=== PATIENT | female | born 1990 | race Caucasian/White ===

== ENCOUNTER 2016-03-19 13:58 | Observation (INO) ==
[2016-03-19 14:34] LABS: Basophils # 0.1 K/mcL (0.0-0.2); Basophils % 0.5 %; Eosinophils # 0.1 K/mcL (0.0-0.6); Eosinophils % 0.9 %; Hematocrit 45.4 % (35.3-44.9); Hemoglobin 15.7 g/dL (11.5-15.4); Immature Granulocytes % 0.4 % (0-4); Lymphocytes # 2.6 K/mcL (0.6-4.6); Lymphocytes % 19.8 %; Mean Corpuscular HGB Conc 34.6 g/dL (31.6-35.5); Mean Corpuscular Volume 89.5 fL (83.0-100.0); Mean Platelet Volume 10.8 fL (9.4-12.4); Monocytes # 0.9 K/mcL (0.0-1.3); Monocytes % 6.6 %; Neutrophils # 9.3 K/mcL (1.6-8.9); Platelet Count 279 K/mcL (140-400); Red Blood Count 5.07 M/mcL (3.82-4.97); Red Cell Distribution Width 12.1 % (11.5-14.5); Segmented Neutrophils % 71.8 %
[2016-03-19 14:37] LABS: Bilirubin,Urine Negative (Negative); Blood,Urine Large (Negative); Clarity,Urine Cloudy (Clear); Color,Urine Yellow (Yellow); Glucose,Urine (UA) Normal (Normal); Ketones,Urine Negative (Negative); Leukocyte Esterase,Urine Trace (Negative); Nitrite,Urine Negative (Negative); Protein,Urine Trace mg/dL (Neg-Trace); Specific Gravity,Urine 1.023 (1.010-1.025); Urobilinogen,Urine Normal (Normal)
[2016-03-19 14:39] LABS: Amphetamine Screen,Urine Negative ng/mL (Cutoff=1000); Barbiturate Screen,Urine Negative ng/mL (Cutoff=200); Benzodiazepines Screen,Urine Negative ng/mL (Cutoff=200); Cannabinoid Screen,Urine Negative ng/mL (Cutoff = 50); Cocaine Screen,Urine Negative ng/mL (Cutoff= 300); Opiate Screen,Urine Negative ng/mL (Cutoff=300); Phencyclidine Screen,Urine Negative ng/mL (Cutoff=25)
[2016-03-19 14:40] LABS: Bacteria,Urine Few per hpf (None-Few); Hyaline Casts,Urine None Seen per lpf (None-Few); RBC,Urine 30-50 per hpf (0-3); Squamous Epithelial Cell,Urine Many per lpf (None-Few); WBC,Urine 0-3 per hpf (0-3)
[2016-03-19 14:50] LABS: BUN/Creatinine Ratio 10 (6-26); Blood Urea Nitrogen 8 mg/dL (7-20); Calcium 9.4 mg/dL (8.6-10.8); Carbon Dioxide 21 mEq/L (19-29); Chloride 108 mEq/L (98-109); Glucose 100 mg/dL (70-99); Osmolality,Calculated 288 (280-300); Potassium 3.6 mEq/L (3.5-4.5); Sodium 140 mEq/L (136-145); eGFR For African Americans > 60 (> 60); eGFR For Non-African Americans > 60 (> 60)
[2016-03-19 14:51] LABS: Acetaminophen < 1.0 mcg/mL (10-30); Ethanol < 10 mg/dL (0-10); Salicylate < 5.0 mg/dL (15-30)
[2016-03-19 14:58] LABS: Mucus,Urine Few (Few)
[2016-03-19 14:59] LABS: Transitional Epi Cells,Urine Few per hpf (None-Few)
--- NOTE | 2016-03-19 14:59 | Emergency Department Note ---
Disposition Clinical Impression: Suicidal ideation Disposition: Admitted As Inpatient Condition: Good Time of Disposition: 18:15 Psych HPI - General Chief Complaint: ED Psychiatric Symptoms Stated Complaint: SI Time Seen by Provider: 03/19/16 14:06 Source: patient, family Mode of arrival: ambulatory Limitations: no limitations Nursing Notes Reviewed: Yes Vital Signs Reviewed: Yes - History of Present Illness HPI Narrative: 25-year-old female presents after cutting event. Patient states she was having a verbal argument with her significant other when she became very angry. She took a knife, scratched her right-sided face and then tried to cut her left wrist. The significant other took away the knife and called EMS. Patient denies ingestion of medications. She states she was cutting herself in an attempt to hurt herself but not necessarily to kill herself. She has no other homicidal ideation. Patient states that her emotions have been out of control over the past couple weeks. 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 - Related Data Home Medications Medication Instructions Recorded Confirmed Cold And Sinus Med 12/09/15 Previous Rx's Medication Instructions Recorded Amoxicillin 875 mg PO BID #20 tablet 12/09/15 Loratadine/Pseudophed (12 HR) 1 each PO BID #20 tab.er.12h 12/09/15 [Claritin D (12HR)] Promethazine/Phenyleph/Codeine 5 ml PO Q6H PRN #120 ml 12/09/15 [Promethazine Vc-Codeine Syrup] Benzonatate [Tessalon] 200 mg PO TID #20 capsule 02/13/16 Doxycycline 100 mg PO BID 7 Days 02/13/16 Ipratropium/Albuterol Sulfate 1 inh IH QID #1 aer.w.adap 02/13/16 [Combivent Respimat Inhal [place]] Allergies Allergy/AdvReac Type Severity Reaction Status Date / Time No Known Allergies Allergy Verified 11/06/14 01:20 Limitations: ROS unobtainable due to patients medical condition Constitutional: Denies: fever, chills, weakness Cardiovascular: Denies: chest pain, palpitations, dyspnea on exertion Respiratory: Denies: cough, dyspnea, wheezes Gastrointestinal: Denies: abdominal pain, nausea, vomiting Genitourinary: Denies: urgency, dysuria Musculoskeletal: Denies: back pain, neck pain Integumentary: Denies: rash, abrasion Neurological: Denies: headache, weakness, numbness, paresthesias Psychiatric: Reports: anxiety, depression, suicidal thoughts. Denies: homicidal thoughts, auditory hallucinations, visual hallucinations Past Medical History - Past Medical History Attestation: Yes The following information was validated with the patient. Source: patient Medical history: Reports: hypertension Surgical history: Reports: orthopedic, other Psychiatric history: Reports: depression ACID CONDITIONER history: Reports: spontaneous , dysfunctional uterine bleed - Social History Smoking Status: Current every day smoker Smokeless Tobacco Status: No Alcohol use: Reports: occasionally Drug use: Reports: none Physical Exam General: Alert and in no acute distress Skin: Warm, dry, abrasion to the right face and left wrist Head: Normocephalic and atraumatic Neck: Supple, trachea midline and no tenderness Cardiovascular: RRR, no murmur, normal perfusion Respiratory: CTAB, no wheezing, cough, or respiratory distress Musculoskeletal: Normal strength, no tenderness, swelling or deformity GI: Soft, nontender, nondistended. Bowel sounds present Neuro: A&O to person, place, time and situation. No focal deficits noted on exam Psychiatric: cooperative and appropriate mood and affect. - General Limitations: no limitations General appearance: alert, in no apparent distress Course Vital Signs Temperature 97.6 F 03/19/16 14:00 Pulse Rate 85 03/19/16 14:00 Respiratory Rate 18 03/19/16 14:00 Blood Pressure 144/102 03/19/16 14:00 O2 Sat by Pulse Oximetry 97 03/19/16 14:00 Temperature 97.6 F 03/19/16 21:00 Pulse Rate 84 03/19/16 21:00 Respiratory Rate 18 03/19/16 21:00 Blood Pressure 140/102 03/19/16 21:00 O2 Sat by Pulse Oximetry 97 03/19/16 14:00 Oxygen Delivery Oxygen Delivery Room Air Psych - Lab Data Result diagrams: 03/19/16 14:15 03/19/16 14:15 Lab Results 03/19/16 03/19/16 03/19/16 Range/Units 14:10 14:10 14:15 WBC 12.9 H (4.3-11.1) K/mcL RBC 5.07 H (3.82-4.97) M/mcL Hgb 15.7 H (11.5-15.4) g/dL Hct 45.4 H (35.3-44.9) % MCV 89.5 (83.0-100.0) fL MCH 31.0 (28.0-33.3) pg MCHC 34.6 (31.6-35.5) g/dL RDW 12.1 (11.5-14.5) % Plt Count 279 (140-400) K/mcL MPV 10.8 (9.4-12.4) fL Immature Gran % 0.4 (0-4) % Seg Neutrophils % 71.8 % Lymphocytes % 19.8 % Monocytes % 6.6 % Eosinophils % 0.9 % Basophils % 0.5 % Neutrophils # 9.3 H (1.6-8.9) K/mcL Lymphocytes # 2.6 (0.6-4.6) K/mcL Monocytes # 0.9 (0.0-1.3) K/mcL Eosinophils # 0.1 (0.0-0.6) K/mcL Basophils # 0.1 (0.0-0.2) K/mcL Sodium (136-145) mEq/L Potassium (3.5-4.5) mEq/L Chloride (98-109) mEq/L Carbon Dioxide (19-29) mEq/L BUN (7-20) mg/dL Creatinine (0.57-1.11) mg/dL Est GFR ( Amer) (> 60) Est GFR (Non-Af Amer) (> 60) BUN/Creatinine Ratio (6-26) Glucose (70-99) mg/dL Calculated Osmolality (280-300) Calcium (8.6-10.8) mg/dL Urine Color Yellow (Yellow) Urine Clarity Cloudy A (Clear) Urine pH 6.0 (5.0-8.0) pH Units Ur Specific [place] 1.023 (1.010-1.025) Urine Protein Trace (Neg-Trace) mg/dL Urine Glucose (UA) Normal (Normal) mg/dL Urine Ketones Negative (Negative) mg/dL Urine Blood Large H (Negative) Urine Nitrite Negative (Negative) Urine Bilirubin Negative (Negative) Urine Urobilinogen Normal (Normal) mg/dL Ur Leukocyte Esterase Trace H (Negative) Urine Microscopic RBC 30-50 H (0-3) per hpf Urine Microscopic WBC 0-3 (0-3) per hpf Ur Squamous Epith Cells Many H (None-Few) per lpf Ur Transition Epith Cell Few (None-Few) per hpf Urine Bacteria Few (None-Few) per hpf Hyaline Casts None Seen (None-Few) per lpf Urine Mucus Few (Few) Salicylates (15-30) mg/dL Urine Opiates Screen Negative (Gerckj=822) ng/mL Acetaminophen (10-30) mcg/mL Ur Barbiturates Screen Negative (Gffctv=397) ng/mL Ur Phencyclidine Scrn Negative (Cutoff=25) ng/mL Ur Amphetamines Screen Negative (Ofhazr=2931) ng/mL U Benzodiazepines Scrn Negative (Yqjlsw=070) ng/mL Urine Cocaine Screen Negative (Cutoff= 300) ng/mL U Marijuana (THC) Screen Negative (Cutoff = 50) ng/mL Ethyl Alcohol (0-10) mg/dL 03/19/16 Range/Units 14:15 WBC (4.3-11.1) K/mcL RBC (3.82-4.97) M/mcL Hgb (11.5-15.4) g/dL Hct (35.3-44.9) % MCV (83.0-100.0) fL MCH (28.0-33.3) pg MCHC (31.6-35.5) g/dL RDW (11.5-14.5) % Plt Count (140-400) K/mcL MPV (9.4-12.4) fL Immature Gran % (0-4) % Seg Neutrophils % % Lymphocytes % % Monocytes % % Eosinophils % % Basophils % % Neutrophils # (1.6-8.9) K/mcL Lymphocytes # (0.6-4.6) K/mcL Monocytes # (0.0-1.3) K/mcL Eosinophils # (0.0-0.6) K/mcL Basophils # (0.0-0.2) K/mcL Sodium 140 (136-145) mEq/L Potassium 3.6 (3.5-4.5) mEq/L Chloride 108 (98-109) mEq/L Carbon Dioxide 21 (19-29) mEq/L BUN 8 (7-20) mg/dL Creatinine 0.80 (0.57-1.11) mg/dL Est GFR ( Amer) > 60 (> 60) Est GFR (Non-Af Amer) > 60 (> 60) BUN/Creatinine Ratio 10 (6-26) Glucose 100 H (70-99) mg/dL Calculated Osmolality 288 (280-300) Calcium 9.4 (8.6-10.8) mg/dL Urine Color (Yellow) Urine Clarity (Clear) Urine pH (5.0-8.0) pH Units Ur Specific [place] (1.010-1.025) Urine Protein (Neg-Trace) mg/dL Urine Glucose (UA) (Normal) mg/dL Urine Ketones (Negative) mg/dL Urine Blood (Negative) Urine Nitrite (Negative) Urine Bilirubin (Negative) Urine Urobilinogen (Normal) mg/dL Ur Leukocyte Esterase (Negative) Urine Microscopic RBC (0-3) per hpf Urine Microscopic WBC (0-3) per hpf Ur Squamous Epith Cells (None-Few) per lpf Ur Transition Epith Cell (None-Few) per hpf Urine Bacteria (None-Few) per hpf Hyaline Casts (None-Few) per lpf Urine Mucus (Few) Salicylates < 5.0 L (15-30) mg/dL Urine Opiates Screen (Fmpxdp=788) ng/mL Acetaminophen < 1.0 L (10-30) mcg/mL Ur Barbiturates Screen (Mgokyp=584) ng/mL Ur Phencyclidine Scrn (Cutoff=25) ng/mL Ur Amphetamines Screen (Gtcwak=1418) ng/mL U Benzodiazepines Scrn (Nmfuht=824) ng/mL Urine Cocaine Screen (Cutoff= 300) ng/mL U Marijuana (THC) Screen (Cutoff = 50) ng/mL Ethyl Alcohol < 10 (0-10) mg/dL Psychiatric Medical Clearance - Medical Clearance Checklist Medical History: No Social History Section defined Current Vitals: Last Vital Signs Temp 97.6 F 03/19/16 21:00 Pulse 84 03/19/16 21:00 Resp 18 03/19/16 21:00 BP 140/102 03/19/16 21:00 Pulse Ox 97 03/19/16 14:00 Psychiatric Lab Panel: Drug Levels and Toxicity 03/19/16 03/19/16 14:10 14:15 Urine Opiates Screen Negative Acetaminophen < 1.0 L Ur Barbiturates Screen Negative Ur Phencyclidine Scrn Negative Ur Amphetamines Screen Negative U Benzodiazepines Scrn Negative Urine Cocaine Screen Negative U Marijuana (THC) Screen Negative Ethyl Alcohol < 10 Abnormal Labs: Abnormal lab results WBC 12.9 K/mcL (4.3-11.1) H 03/19/16 14:15 RBC 5.07 M/mcL (3.82-4.97) H 03/19/16 14:15 Hgb 15.7 g/dL (11.5-15.4) H 03/19/16 14:15 Hct 45.4 % (35.3-44.9) H 03/19/16 14:15 Neutrophils # 9.3 K/mcL (1.6-8.9) H 03/19/16 14:15 Glucose 100 mg/dL (70-99) H 03/19/16 14:15 Urine Clarity Cloudy (Clear) A 03/19/16 14:10 Urine Blood Large (Negative) H 03/19/16 14:10 Ur Leukocyte Esterase Trace (Negative) H 03/19/16 14:10 Urine Microscopic RBC 30-50 per hpf (0-3) H 03/19/16 14:10 Ur Squamous Epith Cells Many per lpf (None-Few) H 03/19/16 14:10 Salicylates < 5.0 mg/dL (15-30) L 03/19/16 14:15 Acetaminophen < 1.0 mcg/mL (10-30) L 03/19/16 14:15 Statement of Medical Clearance: I have evaluated the patient, reviewed diagnostic information, and certify that the patient's medical condition is sufficiently stable that transfer to the psychiatric unit does not pose a significant risk of deterioration.
[2016-03-19] MEDS ORDERED: Acetaminophen 325 MG TABLET PO PRN (18:51)
[2016-03-19] MEDS ORDERED: Mag Hydrox/Al Hydrox/Simeth 30 ML UDC PO PRN (18:51)
[2016-03-19] MEDS ORDERED: *HR* LORazepam 1 MG TABLET PO PRN ×2 (18:51→18:54)
[2016-03-19] MEDS ORDERED: MOM Conc 10 ML UD.LIQ PO PRN (18:51)
[2016-03-19] MEDS ORDERED: traZODone 50 MG TABLET PO PRN (18:51)
[2016-03-19] MEDS ORDERED: Haloperidol Lactate 5 MG/ML VIAL IM PRN (18:51)
[2016-03-19] MEDS ORDERED: *HR* LORazepam 2 MG/ML VIAL IM PRN (18:51)
[2016-03-20] MEDS ORDERED: Nicotine 2 MG GUM BC PRN (08:22)
[2016-03-20 08:27] VITALS: BP 142/95
--- NOTE | 2016-03-20 08:32 | Psychiatry History & Physical ---
Date of Encounter: 03/20/16 Time of Encounter: 09:03 History of Present Illness Patient Stated Chief Complaint: angry and cut myself Medicare Admission Attestation: For traditional Medicare patients the provided hospital inpatient services are reasonable and necessary and in the case of services not specified as inpatient -only under 42 CFR 419.22 (n), that they are appropriately provided as inpatient services in accordance 42 CFR 412.3. For Critical Access Hospital the patient may reasonably be expected to be discharged or transferred to a hospital within 96 hours after admission to the Critical Access Hospital. Admitted From: Emergency Dept History of Present Illness: Ms. Enamorado is a 25 year old female admitted from the emergency department under observation status. Patient presented was significant other reporting that she has been feeling increasingly irritable and frustrated and has an argument after which she went to the bathroom with a minor and cut herself superficially on the right side of her face but denied any intent to kill herself. 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 She stated that that she experienced feeling depressed since her teenage years and especially in 2005 when she lost her 2 grandparents in the same year she was in high school at that time and she had drug abuse for a while and that was mostly narcotics for pain but she has been clean for the past 4 years otherwise she she smokes one half pack cigarettes during significant amount of caffeine caffeinated beverages but denied any as of drugs or alcohol. Patient denied having any previous suicide attempts or intents to harm herself however she admitted to feeling tired and frustrated irritable especially after working this longer hours also she noticed more changes around her. In the form IRRITABILITY and mood swings. Past Med Surg Social Fam HX - Past Medical History Medical history: hypertension - Past Psychiatric History Psychiatric history: Reports: no psych history - Past Surgical History Surgical History: orthopedic, other - Social History Smoking Status: Current every day smoker Smokeless Tobacco Status: No Alcohol use: occasionally Drug use: none - Family History Mother Hx Family Cardiac Disorders: Yes (heart disease) Hx Family Endocrine Disorder: Yes (diabeties) Father Hx Family Cardiac Disorders: Yes (heart disease, [place]) Medications & Allergies Amoxicillin 875 mg PO BID #20 tablet 12/09/15 [Rx] Cold And Sinus Med 12/09/15 [History] Loratadine/Pseudophed (12 HR) [Claritin D (12HR)] 1 each PO BID #20 tab.er.12h 12/09/15 [Rx] Promethazine/Phenyleph/Codeine [Promethazine Vc-Codeine Syrup] 5 ml PO Q6H PRN # 120 ml 12/09/15 [Rx] Benzonatate [Tessalon] 200 mg PO TID #20 capsule 02/13/16 [Rx] Doxycycline 100 mg PO BID 7 Days 02/13/16 [Rx] Ipratropium/Albuterol Sulfate [Combivent Respimat Inhal [place]] 1 inh IH QID #1 aer.w.adap 02/13/16 [Rx] Allergies No Known Allergies Allergy (Verified 11/06/14 01:20) Review of Systems Psychiatric: Reports: depression, anxiety, suicidal ideation, irritability, mood swings Mental Status Exam Patient orientation: Yes Person, Yes Time, Yes Place Level of alertness: Alert Patient appearance: Appropriate, Well Groomed Behavior: calm, cooperative Psychomotor activity: Normal Eye contact: Maintains Eye Contact Mood description: Depressed, Anxious, Irritable Affect description: congruent with mood, full range Speech pattern: Normal rate, Normal rhythm, Normal tone, Appropriate, Clear Speech volume: Normal Thought process: Linear, Goal Oriented Thought content: No Suicidal ideation, No Homicidal ideation, No Overt delusions Perceptual disturbances: No Auditory hallucinations, No Visual hallucinations Attention span: Capable of Focused Attention Memory description: Grossly Intact Patient reliability: Reliable Historian Intelligence estimate: Average Judgment: Good Insight: Full Results - Vital Signs Vital signs: Temp Pulse Resp BP Pulse Ox 97.7 F 78 20 142/95 97 03/20/16 08:27 03/20/16 08:27 03/20/16 08:27 03/20/16 08:27 03/19/16 14:00 - Labs Labs: Laboratory Last Values WBC 12.9 K/mcL (4.3-11.1) H 03/19/16 14:15 RBC 5.07 M/mcL (3.82-4.97) H 03/19/16 14:15 Hgb 15.7 g/dL (11.5-15.4) H 03/19/16 14:15 Hct 45.4 % (35.3-44.9) H 03/19/16 14:15 MCV 89.5 fL (83.0-100.0) 03/19/16 14:15 MCH 31.0 pg (28.0-33.3) 03/19/16 14:15 MCHC 34.6 g/dL (31.6-35.5) 03/19/16 14:15 RDW 12.1 % (11.5-14.5) 03/19/16 14:15 Plt Count 279 K/mcL (140-400) 03/19/16 14:15 MPV 10.8 fL (9.4-12.4) 03/19/16 14:15 Immature Gran % 0.4 % (0-4) 03/19/16 14:15 Seg Neutrophils % 71.8 % 03/19/16 14:15 Lymphocytes % 19.8 % 03/19/16 14:15 Monocytes % 6.6 % 03/19/16 14:15 Eosinophils % 0.9 % 03/19/16 14:15 Basophils % 0.5 % 03/19/16 14:15 Neutrophils # 9.3 K/mcL (1.6-8.9) H 03/19/16 14:15 Lymphocytes # 2.6 K/mcL (0.6-4.6) 03/19/16 14:15 Monocytes # 0.9 K/mcL (0.0-1.3) 03/19/16 14:15 Eosinophils # 0.1 K/mcL (0.0-0.6) 03/19/16 14:15 Basophils # 0.1 K/mcL (0.0-0.2) 03/19/16 14:15 Sodium 140 mEq/L (136-145) 03/19/16 14:15 Potassium 3.6 mEq/L (3.5-4.5) 03/19/16 14:15 Chloride 108 mEq/L (98-109) 03/19/16 14:15 Carbon Dioxide 21 mEq/L (19-29) 03/19/16 14:15 BUN 8 mg/dL (7-20) 03/19/16 14:15 Creatinine 0.80 mg/dL (0.57-1.11) 03/19/16 14:15 Est GFR ( Amer) > 60 (> 60) 03/19/16 14:15 Est GFR (Non-Af Amer) > 60 (> 60) 03/19/16 14:15 BUN/Creatinine Ratio 10 (6-26) 03/19/16 14:15 Glucose 100 mg/dL (70-99) H 03/19/16 14:15 Calculated Osmolality 288 (280-300) 03/19/16 14:15 Calcium 9.4 mg/dL (8.6-10.8) 03/19/16 14:15 Urine Color Yellow (Yellow) 03/19/16 14:10 Urine Clarity Cloudy (Clear) A 03/19/16 14:10 Urine pH 6.0 pH Units (5.0-8.0) 03/19/16 14:10 Ur Specific [place] 1.023 (1.010-1.025) 03/19/16 14:10 Urine Protein Trace mg/dL (Neg-Trace) 03/19/16 14:10 Urine Glucose (UA) Normal mg/dL (Normal) 03/19/16 14:10 Urine Ketones Negative mg/dL (Negative) 03/19/16 14:10 Urine Blood Large (Negative) H 03/19/16 14:10 Urine Nitrite Negative (Negative) 03/19/16 14:10 Urine Bilirubin Negative (Negative) 03/19/16 14:10 Urine Urobilinogen Normal mg/dL (Normal) 03/19/16 14:10 Ur Leukocyte Esterase Trace (Negative) H 03/19/16 14:10 Urine Microscopic RBC 30-50 per hpf (0-3) H 03/19/16 14:10 Urine Microscopic WBC 0-3 per hpf (0-3) 03/19/16 14:10 Ur Squamous Epith Cells Many per lpf (None-Few) H 03/19/16 14:10 Ur Transition Epith Cell Few per hpf (None-Few) 03/19/16 14:10 Urine Bacteria Few per hpf (None-Few) 03/19/16 14:10 Hyaline Casts None Seen per lpf (None-Few) 03/19/16 14:10 Urine Mucus Few (Few) 03/19/16 14:10 Salicylates < 5.0 mg/dL (15-30) L 03/19/16 14:15 Urine Opiates Screen Negative ng/mL (Uftuex=662) 03/19/16 14:10 Acetaminophen < 1.0 mcg/mL (10-30) L 03/19/16 14:15 Ur Barbiturates Screen Negative ng/mL (Csgykk=313) 03/19/16 14:10 Ur Phencyclidine Scrn Negative ng/mL (Cutoff=25) 03/19/16 14:10 Ur Amphetamines Screen Negative ng/mL (Maquwm=1713) 03/19/16 14:10 U Benzodiazepines Scrn Negative ng/mL (Vprffh=397) 03/19/16 14:10 Urine Cocaine Screen Negative ng/mL (Cutoff= 300) 03/19/16 14:10 U Marijuana (THC) Screen Negative ng/mL (Cutoff = 50) 03/19/16 14:10 Ethyl Alcohol < 10 mg/dL (0-10) 03/19/16 14:15 Assessment and Plan (1) Depressive disorder Current visit: Yes Status: Acute Plan: Admit inpatient for safety and stabilization, Close observation, Suicide Precautions per unit protocol, Encourage participation in unit milieu, Group Therapy, Monitor sleep, Monitor appetite Risks, benefits, side effects, alternatives discussed w/pt: Yes Patient agreeable to treatment: Yes Estimated Length of Stay (Days): 1 (observation)
--- NOTE | 2016-03-20 13:12 | Discharge Summary ---
Date of Encounter: 03/20/16 Time of Encounter: 13:10 History of Present Illness Chief complaint: angry,i cut myself Admitted From: Emergency Dept History of Present Illness: Ms. Enamorado is a 25 year old female admitted from the emergency department on an observation status. Patient had an argument towards her boyfriend and then she went in the bathroom was a knife and cut her face on the right cheek superficially. Patient denied any intent to kill herself had no previous attempts of suicide and has been working longer hours and she feels irritable. For details of the admission please see H&P Past Med Surg Social Fam HX - Past Medical History Medical history: hypertension - Past Psychiatric History Psychiatric history: Reports: no psych history - Past Surgical History Surgical History: orthopedic, other - Social History Smoking Status: Current every day smoker Smokeless Tobacco Status: No Alcohol use: occasionally Drug use: none - Family History Mother Hx Family Cardiac Disorders: Yes (heart disease) Hx Family Endocrine Disorder: Yes (diabeties) Father Hx Family Cardiac Disorders: Yes (heart disease, [place]) Medications - Discharge Medications Prescriptions: Sertraline [Zoloft] 50 mg PO DAILY #30 tablet TraZODone 50 mg PO HS PRN #30 tablet PRN Reason: Insomnia Sertraline [Zoloft] 50 mg PO DAILY #30 tablet 03/20/16 [Rx] TraZODone 50 mg PO HS PRN #30 tablet 03/20/16 [Rx] Allergies No Known Allergies Allergy (Verified 11/06/14 01:20) Review of Systems Psychiatric: Reports: depression, anxiety, suicidal ideation, irritability, mood swings Mental Status Exam - Mental Status Exam Patient orientation: Yes Person, Yes Time, Yes Place Level of alertness: Alert Patient appearance: Appropriate, Well Groomed Behavior: calm, cooperative Psychomotor activity: Normal Eye contact: Maintains Eye Contact Mood description: Depressed, Anxious, Irritable Affect description: congruent with mood, full range Speech pattern: Normal rate, Normal rhythm, Normal tone, Appropriate, Clear Speech Volume: Normal Thought process: Linear, Goal Oriented Thought Content: No Suicidal ideation, No Homicidal ideation, No Overt delusions Perceptual Disturbances: No Auditory hallucinations, No Visual hallucinations Judgment: Good Insight: Full Results - Vital Signs Vital signs: Temp Pulse Resp BP Pulse Ox 97.7 F 78 20 142/95 97 03/20/16 08:27 03/20/16 08:27 03/20/16 08:27 03/20/16 08:27 03/19/16 14:00 - Labs Labs: Laboratory Last Values WBC 12.9 K/mcL (4.3-11.1) H 03/19/16 14:15 RBC 5.07 M/mcL (3.82-4.97) H 03/19/16 14:15 Hgb 15.7 g/dL (11.5-15.4) H 03/19/16 14:15 Hct 45.4 % (35.3-44.9) H 03/19/16 14:15 MCV 89.5 fL (83.0-100.0) 03/19/16 14:15 MCH 31.0 pg (28.0-33.3) 03/19/16 14:15 MCHC 34.6 g/dL (31.6-35.5) 03/19/16 14:15 RDW 12.1 % (11.5-14.5) 03/19/16 14:15 Plt Count 279 K/mcL (140-400) 03/19/16 14:15 MPV 10.8 fL (9.4-12.4) 03/19/16 14:15 Immature Gran % 0.4 % (0-4) 03/19/16 14:15 Seg Neutrophils % 71.8 % 03/19/16 14:15 Lymphocytes % 19.8 % 03/19/16 14:15 Monocytes % 6.6 % 03/19/16 14:15 Eosinophils % 0.9 % 03/19/16 14:15 Basophils % 0.5 % 03/19/16 14:15 Neutrophils # 9.3 K/mcL (1.6-8.9) H 03/19/16 14:15 Lymphocytes # 2.6 K/mcL (0.6-4.6) 03/19/16 14:15 Monocytes # 0.9 K/mcL (0.0-1.3) 03/19/16 14:15 Eosinophils # 0.1 K/mcL (0.0-0.6) 03/19/16 14:15 Basophils # 0.1 K/mcL (0.0-0.2) 03/19/16 14:15 Sodium 140 mEq/L (136-145) 03/19/16 14:15 Potassium 3.6 mEq/L (3.5-4.5) 03/19/16 14:15 Chloride 108 mEq/L (98-109) 03/19/16 14:15 Carbon Dioxide 21 mEq/L (19-29) 03/19/16 14:15 BUN 8 mg/dL (7-20) 03/19/16 14:15 Creatinine 0.80 mg/dL (0.57-1.11) 03/19/16 14:15 Est GFR ( Amer) > 60 (> 60) 03/19/16 14:15 Est GFR (Non-Af Amer) > 60 (> 60) 03/19/16 14:15 BUN/Creatinine Ratio 10 (6-26) 03/19/16 14:15 Glucose 100 mg/dL (70-99) H 03/19/16 14:15 Calculated Osmolality 288 (280-300) 03/19/16 14:15 Calcium 9.4 mg/dL (8.6-10.8) 03/19/16 14:15 Urine Color Yellow (Yellow) 03/19/16 14:10 Urine Clarity Cloudy (Clear) A 03/19/16 14:10 Urine pH 6.0 pH Units (5.0-8.0) 03/19/16 14:10 Ur Specific [place] 1.023 (1.010-1.025) 03/19/16 14:10 Urine Protein Trace mg/dL (Neg-Trace) 03/19/16 14:10 Urine Glucose (UA) Normal mg/dL (Normal) 03/19/16 14:10 Urine Ketones Negative mg/dL (Negative) 03/19/16 14:10 Urine Blood Large (Negative) H 03/19/16 14:10 Urine Nitrite Negative (Negative) 03/19/16 14:10 Urine Bilirubin Negative (Negative) 03/19/16 14:10 Urine Urobilinogen Normal mg/dL (Normal) 03/19/16 14:10 Ur Leukocyte Esterase Trace (Negative) H 03/19/16 14:10 Urine Microscopic RBC 30-50 per hpf (0-3) H 03/19/16 14:10 Urine Microscopic WBC 0-3 per hpf (0-3) 03/19/16 14:10 Ur Squamous Epith Cells Many per lpf (None-Few) H 03/19/16 14:10 Ur Transition Epith Cell Few per hpf (None-Few) 03/19/16 14:10 Urine Bacteria Few per hpf (None-Few) 03/19/16 14:10 Hyaline Casts None Seen per lpf (None-Few) 03/19/16 14:10 Urine Mucus Few (Few) 03/19/16 14:10 Salicylates < 5.0 mg/dL (15-30) L 03/19/16 14:15 Urine Opiates Screen Negative ng/mL (Womumk=154) 03/19/16 14:10 Acetaminophen < 1.0 mcg/mL (10-30) L 03/19/16 14:15 Ur Barbiturates Screen Negative ng/mL (Gcivfh=148) 03/19/16 14:10 Ur Phencyclidine Scrn Negative ng/mL (Cutoff=25) 03/19/16 14:10 Ur Amphetamines Screen Negative ng/mL (Zvghlq=1717) 03/19/16 14:10 U Benzodiazepines Scrn Negative ng/mL (Uqmhpx=389) 03/19/16 14:10 Urine Cocaine Screen Negative ng/mL (Cutoff= 300) 03/19/16 14:10 U Marijuana (THC) Screen Negative ng/mL (Cutoff = 50) 03/19/16 14:10 Ethyl Alcohol < 10 mg/dL (0-10) 03/19/16 14:15 Diagnosis - Discharge Diagnosis (1) Depressive disorder Priority: Primary Status: Acute (2) Suicidal ideation Priority: Secondary Status: Acute Assessment and Plan - Patient/Caregiver Discharge Instructions Activity: resume usual activities as tolerated Diet: regular diet - Follow up Plan Follow up with: Woodrow Herrera [facility] [Outside] - 04/02/16 12:15 pm (The above appointment is with your new primary care physician. You will also see psychiatric provider Kassi Bloom 05/26/2016@0930 and Ana Rosa Gutierrez for counseling 05/12/16@1100. ) Overall status at discharge: Stable Disposition: Home, Self-Care Provider Date of admission: 03/19/16 18:21 Primary care physician: PCP NO Discharging clinician: Julius Doe Hospital Course Hospital course: Ms. Enamorado is a 25 year old female admitted from the emergency departments where she presented with her significant other complaining of feeling angry and cuts herself on the right cheek face. This happened following an argument with his boyfriend and she denied any intent to kill herself or harm herself. Patient had no previous psychiatric history or admission. She works long hours 7 days a week and feels tired and drained. 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 On admission patient was evaluated by psychiatrist and started on Zoloft 50 mg benefits and side effects were discussed and she was agreeable. Also she was given referral for outpatient follow-up and available resources in the community. Prior to discharge patient was stable and denied any suicidal ideation within the affect were stable she was optimistic and looking forward to go back to work and follow-up on her mental health issues. - Time Spent with Patient Total time spent providing and/or coordinating discharge services: Less than 30 minutes Procedures - Procedures Procedures: Medication Management, Crisis Stabilization, Supportive Therapy, Group Therapy, Psychoeducational Therapy Quality - Multiple Antipsychotics Patient discharged on 2 or more antipsychotic medications: No
== END 2016-03-20 13:55 | disposition home or self-care (01) ==
LOC: EMEROO 13:58 → 1ANU 13:58
PROVIDERS: ADMIT Psychiatry & Neurology Psychiatry; ATTEND Psychiatry & Neurology Psychiatry

== ENCOUNTER 2020-02-16 16:32 | Inpatient (IN) ==
[2020-02-16] MEDS ORDERED: lisinopriL 20 MG TABLET PO STA (17:13)
[2020-02-16] MEDS ORDERED: amLODIPine 5 MG TABLET PO STA (17:14)
[2020-02-16] MEDS ORDERED: Dexamethasone 4 MG/ML VIAL IVP ONE (19:53)
[2020-02-16] MEDS ORDERED: *HR* HYDROmorphone (PF) 1 MG/ML SYRINGE IVP STA (19:53)
[2020-02-16] MEDS ORDERED: Ondansetron 4 MG/2 ML VIAL IVP ONE (19:54)
[2020-02-16 20:53] LABS: Hematocrit 47.4 % (35.3-44.9); Hemoglobin 15.9 g/dL (11.5-15.4); Mean Corpuscular HGB Conc 33.5 g/dL (31.6-35.5); Mean Corpuscular Hemoglobin 30.9 pg (28.0-33.3); Platelet Count 418 K/mcL (140-400); Red Blood Count 5.15 M/mcL (3.82-4.97); Red Cell Distribution Width 12.8 % (11.5-14.5); White Blood Count 13.7 K/mcL (4.3-11.1)
[2020-02-16 21:01] LABS: BUN/Creatinine Ratio 26 (6-26); Blood Urea Nitrogen 19 mg/dL (6-20); Calcium 9.7 mg/dL (8.6-10.3); Carbon Dioxide 20 mEq/L (23-29); Chloride 106 mEq/L (98-107); Glucose 87 mg/dL (70-105); Osmolality,Calculated 284 (280-300); Potassium 4.2 mEq/L (3.5-5.1); Sodium 136 mEq/L (136-145); eGFR For African Americans > 60 (> 60); eGFR For Non-African Americans > 60 (> 60)
[2020-02-16] MEDS ORDERED: Naloxone 0.4 MG/ML INJ IVP PRN (21:06)
[2020-02-16] MEDS ORDERED: Acetaminophen 325 MG TABLET PO PRN (21:06)
[2020-02-16] MEDS ORDERED: Ondansetron 4 MG/2 ML VIAL IVP PRN (21:06)
[2020-02-16] MEDS: *HR* HYDROcodone/Acet 5/325 mg TABLET PO PRN (22:39)
[2020-02-16] MEDS: Nicotine 21 MG PATCH.TD24 TD SCH (22:44)
[2020-02-16] MEDS: *HR* Heparin 5,000 UNIT/ML VIAL SQ SCH (23:58)
[2020-02-17] MEDS: *HR* HYDROmorphone (PF) 1 MG/ML SYRINGE IVP PRN ×5 (02:26→19:42)
[2020-02-17] MEDS: *HR* HYDROcodone/Acet 5/325 mg TABLET PO PRN (05:08)
[2020-02-17 07:56] LABS: Basophils % 0.2 %; Hematocrit 47.1 % (35.3-44.9); Hemoglobin 15.2 g/dL (11.5-15.4); Immature Granulocytes % 0.7 % (0-4); Lymphocytes # 1.6 K/mcL (0.6-4.6); Lymphocytes % 12.3 %; Mean Corpuscular HGB Conc 32.3 g/dL (31.6-35.5); Mean Corpuscular Volume 93.1 fL (83.0-100.0); Mean Platelet Volume 10.5 fL (9.4-12.4); Monocytes # 0.2 K/mcL (0.0-1.3); Monocytes % 1.8 %; Neutrophils # 11.3 K/mcL (1.6-8.9); Platelet Count 391 K/mcL (140-400); Red Blood Count 5.06 M/mcL (3.82-4.97); Red Cell Distribution Width 12.9 % (11.5-14.5); White Blood Count 13.3 K/mcL (4.3-11.1)
[2020-02-17 08:14] LABS: BUN/Creatinine Ratio 36 (6-26); Blood Urea Nitrogen 21 mg/dL (6-20); Calcium 9.9 mg/dL (8.6-10.3); Carbon Dioxide 19 mEq/L (23-29); Chloride 106 mEq/L (98-107); Glucose 144 mg/dL (70-105); Osmolality,Calculated 284 (280-300); Potassium 4.6 mEq/L (3.5-5.1); Sodium 134 mEq/L (136-145); eGFR For African Americans > 60 (> 60); eGFR For Non-African Americans > 60 (> 60)
[2020-02-17] MEDS ORDERED: amLODIPine 5 MG TABLET PO SCH (09:00)
[2020-02-17] MEDS ORDERED: lisinopriL 20 MG TABLET PO SCH (09:00)
[2020-02-17] MEDS: Nicotine 21 MG PATCH.TD24 TD SCH (10:11)
[2020-02-17] MEDS ORDERED: Bacitracin 50,000 UNIT, Polymyxin B Sulfate 500,000 UNIT, Sodium Chloride IRRigation 1,... IR ONE (12:00)
[2020-02-17] MEDS: *HR* Heparin 5,000 UNIT/ML VIAL SQ SCH (15:02)
[2020-02-17] MEDS ORDERED: ceFAZolin 2,000 MG in Water for inj. (sterile) 20 ML IVP ONE (15:07)
[2020-02-17 16:39] LABS: Adenovirus Not Detected (Not Detect); Coronavirus 229E Not Detected (Not Detect); Coronavirus HKU1 Not Detected (Not Detect); Coronavirus NL63 Not Detected (Not Detect); Coronavirus OC43 Not Detected (Not Detect); Human Metapneumovirus Not Detected (Not Detect); Human Rhinovirus/Enterovirus Not Detected (Not Detect); SARS-CoV-2 Not Detected (Not Detect)
[2020-02-17 16:40] LABS: Bordetella Pertussis Not Detected (Not Detect); Chlamydophila pneumoniae Not Detected (Not Detect); Influenza A Subtype 2009 H1 Not Detected (Not Detect); Influenza B Not Detected (Not Detect); Mycoplasma pneumoniae Not Detected (Not Detect); Parainfluenza Virus 1 Not Detected (Not Detect); Parainfluenza Virus 2 Not Detected (Not Detect); Parainfluenza Virus 3 Not Detected (Not Detect); Parainfluenza Virus 4 Not Detected (Not Detect); Respiratory Syncytial Virus Not Detected (Not Detect)
[2020-02-17] MEDS ORDERED: Famotidine 20 MG/2 ML VIAL IVP ONE (20:53)
[2020-02-17] MEDS ORDERED: *HR* Methadone 10 MG TABLET PO ONE (20:53)
[2020-02-17] MEDS ORDERED: Acetaminophen IV 1,000 MG/100 ML BAG IVPB ONE ×2 (20:53→21:11)
[2020-02-17] MEDS ORDERED: Famotidine 20 MG/2 ML VIAL ONE (21:12)
[2020-02-17] MEDS ORDERED: Ondansetron 4 MG/2 ML VIAL IVP PRN (21:59)
[2020-02-17] MEDS ORDERED: Ondansetron 4 MG/2 ML VIAL ONE (22:09)
[2020-02-17] MEDS ORDERED: Lidocaine -MPF 2% 2 ML VIAL ONE (22:09)
[2020-02-17] MEDS ORDERED: Dexamethasone 4 MG/ML VIAL ONE (22:09)
[2020-02-17] MEDS ORDERED: *HR* Propofol 200 MG/20 ML VIAL IVP ONE (22:09)
[2020-02-17] MEDS ORDERED: *HR* FentaNYL (PF) 100 MCG/2 ML VIAL ONE (22:09)
[2020-02-17] MEDS ORDERED: *HR* Remifentanil 1 MG VIAL IVP ONE (22:40)
[2020-02-17] MEDS ORDERED: *HR* PHENYLEPHRINE 1,000 MCG/10 ML SYRINGE IVP ONE (23:20)
[2020-02-17] MEDS ORDERED: EPHEDrine 50 MG/ML VIAL ONE (23:30)
[2020-02-18] MEDS ORDERED: *HR* Remifentanil 1 MG VIAL IVP ONE (00:46)
[2020-02-18] MEDS ORDERED: Albuterol 2.5 MG/3 ML NEBULIZER ONE (01:40)
[2020-02-18] MEDS ORDERED: Albuterol 2.5 MG/3 ML NEBULIZER IH ONE (01:40)
[2020-02-18] MEDS: *HR* HYDROmorphone PF 0.5 MG/0.5 ML SYRINGE IVP PRN ×3 (01:49→02:10)
[2020-02-18] MEDS ORDERED: Acetaminophen 325 MG TABLET PO PRN (02:50)
[2020-02-18] MEDS ORDERED: Ondansetron 4 MG/2 ML VIAL IVP PRN (02:50)
[2020-02-18] MEDS ORDERED: Naloxone 0.4 MG/ML INJ IVP PRN (02:50)
[2020-02-18] MEDS ORDERED: Ringers Solution, Lactated 1,000 ML IVC SCH (02:50)
[2020-02-18] MEDS: *HR* OxyCODONE Immed Rel 5 MG TABLET PO PRN ×4 (03:56→18:04)
[2020-02-18 08:26] LABS: Basophils % 0.2 %; Mean Platelet Volume 9.9 fL (9.4-12.4); Red Cell Distribution Width 13.4 % (11.5-14.5)
[2020-02-18 08:28] LABS: Basophils # 0.1 K/mcL (0.0-0.2); Hematocrit 43.2 % (35.3-44.9); Hemoglobin 14.1 g/dL (11.5-15.4); Immature Granulocytes % 0.8 % (0-4); Lymphocytes # 1.8 K/mcL (0.6-4.6); Lymphocytes % 6.8 %; Mean Corpuscular HGB Conc 32.6 g/dL (31.6-35.5); Mean Corpuscular Hemoglobin 31.1 pg (28.0-33.3); Mean Corpuscular Volume 95.2 fL (83.0-100.0); Monocytes # 1.4 K/mcL (0.0-1.3); Monocytes % 5.1 %; Neutrophils # 23.6 K/mcL (1.6-8.9); Platelet Count 397 K/mcL (140-400); Red Blood Count 4.54 M/mcL (3.82-4.97); Segmented Neutrophils % 87.1 %; White Blood Count 27.1 K/mcL (4.3-11.1)
[2020-02-18] MEDS: lisinopriL 20 MG TABLET PO SCH (08:46)
[2020-02-18] MEDS: Fenofibrate 54 MG TABLET PO SCH (08:46)
[2020-02-18] MEDS: amLODIPine 5 MG TABLET PO SCH (08:46)
[2020-02-18 08:50] LABS: Platelet Estimate Normal (Normal); Reactive Lymphocytes Present (Not Present)
[2020-02-18] MEDS: diazePAM 5 MG TABLET PO PRN ×2 (09:01→15:27)
[2020-02-18] MEDS: Gabapentin 300 MG CAPSULE PO SCH ×3 (09:01→21:06)
[2020-02-18] MEDS: CeFAZolin 2 GM/120 ML BAG IVPB SCH ×2 (09:07→15:28)
[2020-02-18 09:13] LABS: BUN/Creatinine Ratio 24 (6-26); Blood Urea Nitrogen 18 mg/dL (6-20); Calcium 9.6 mg/dL (8.6-10.3); Carbon Dioxide 23 mEq/L (23-29); Chloride 101 mEq/L (98-107); Glucose 124 mg/dL (70-105); Magnesium 2.2 mg/dL (1.6-2.6); Osmolality,Calculated 281 (280-300); Potassium 4.7 mEq/L (3.5-5.1); Sodium 134 mEq/L (136-145); eGFR For African Americans > 60 (> 60); eGFR For Non-African Americans > 60 (> 60)
[2020-02-18] MEDS: *HR* HYDROcodone/Acet 5/325 mg TABLET PO PRN ×2 (15:37→21:42)
[2020-02-18] MEDS ORDERED: *HR* Heparin 5,000 UNIT/ML VIAL SQ SCH (18:00)
[2020-02-19] MEDS: *HR* OxyCODONE Immed Rel 5 MG TABLET PO PRN ×5 (00:16→22:19)
[2020-02-19] MEDS: diazePAM 5 MG TABLET PO PRN (02:47)
[2020-02-19] MEDS: *HR* HYDROcodone/Acet 5/325 mg TABLET PO PRN ×2 (03:58→17:42)
[2020-02-19] MEDS: Fenofibrate 54 MG TABLET PO SCH (07:02)
[2020-02-19] MEDS: Gabapentin 300 MG CAPSULE PO SCH ×3 (07:02→19:31)
[2020-02-19 07:40] LABS: Basophils % 0.2 %; Eosinophils % 0.1 %; Hematocrit 40.7 % (35.3-44.9); Immature Granulocytes % 0.6 % (0-4); Lymphocytes # 2.7 K/mcL (0.6-4.6); Lymphocytes % 14.2 %; Mean Corpuscular HGB Conc 31.9 g/dL (31.6-35.5); Mean Corpuscular Hemoglobin 30.2 pg (28.0-33.3); Mean Corpuscular Volume 94.7 fL (83.0-100.0); Monocytes # 2.4 K/mcL (0.0-1.3); Monocytes % 12.7 %; Neutrophils # 13.8 K/mcL (1.6-8.9); Platelet Count 324 K/mcL (140-400); Red Cell Distribution Width 13.6 % (11.5-14.5); Segmented Neutrophils % 72.2 %
[2020-02-19 07:51] LABS: BUN/Creatinine Ratio 18 (6-26); Blood Urea Nitrogen 12 mg/dL (6-20); Calcium 9.3 mg/dL (8.6-10.3); Carbon Dioxide 27 mEq/L (23-29); Chloride 101 mEq/L (98-107); Glucose 103 mg/dL (70-105); Osmolality,Calculated 282 (280-300); Sodium 136 mEq/L (136-145); eGFR For African Americans > 60 (> 60); eGFR For Non-African Americans > 60 (> 60)
[2020-02-19 08:17] LABS: SARS-CoV-2 by NAA NOT DETECTED
[2020-02-19] MEDS: amLODIPine 5 MG TABLET PO SCH (08:56)
[2020-02-19] MEDS: lisinopriL 20 MG TABLET PO SCH (08:56)
[2020-02-20 01:51] LABS: Basophils # 0.1 K/mcL (0.0-0.2); Basophils % 0.4 %; Eosinophils # 0.1 K/mcL (0.0-0.6); Eosinophils % 0.6 %; Hematocrit 38.6 % (35.3-44.9); Hemoglobin 12.5 g/dL (11.5-15.4); Immature Granulocytes % 0.5 % (0-4); Lymphocytes # 2.3 K/mcL (0.6-4.6); Lymphocytes % 15.6 %; Mean Corpuscular HGB Conc 32.4 g/dL (31.6-35.5); Mean Corpuscular Hemoglobin 31.3 pg (28.0-33.3); Mean Corpuscular Volume 96.5 fL (83.0-100.0); Mean Platelet Volume 9.9 fL (9.4-12.4); Neutrophils # 10.5 K/mcL (1.6-8.9); Platelet Count 332 K/mcL (140-400); Red Cell Distribution Width 13.6 % (11.5-14.5); Segmented Neutrophils % 69.9 %
[2020-02-20 02:14] LABS: BUN/Creatinine Ratio 16 (6-26); Blood Urea Nitrogen 9 mg/dL (6-20); Calcium 8.9 mg/dL (8.6-10.3); Carbon Dioxide 24 mEq/L (23-29); Chloride 101 mEq/L (98-107); Glucose 94 mg/dL (70-105); Osmolality,Calculated 276 (280-300); Potassium 3.9 mEq/L (3.5-5.1); Sodium 134 mEq/L (136-145); eGFR For African Americans > 60 (> 60); eGFR For Non-African Americans > 60 (> 60)
[2020-02-20] MEDS: *HR* OxyCODONE Immed Rel 5 MG TABLET PO PRN ×3 (02:59→11:36)
[2020-02-20] MEDS: Gabapentin 300 MG CAPSULE PO SCH (07:15)
[2020-02-20] MEDS: Fenofibrate 54 MG TABLET PO SCH (07:16)
[2020-02-20] MEDS: lisinopriL 20 MG TABLET PO SCH (07:17)
[2020-02-20] MEDS: amLODIPine 5 MG TABLET PO SCH (07:17)
[2020-02-20] MEDS: diazePAM 5 MG TABLET PO PRN (09:26)
[2020-02-20 10:52] VITALS: BP 115/75
[2020-02-20] MEDS ORDERED: FLU Vac QV 20-21 (6Month+)/PF 0.5 ML SYRINGE IM ONE (11:55)
== END 2020-02-20 14:21 | disposition home health service (06) ==
LOC: 3NENU 16:32 → EMEROOARM 16:32 → SUATTDRO 21:09 → 3NENU 21:44
PROVIDERS: ADMIT Internal Medicine; ATTEND Family Medicine

== ENCOUNTER 2020-04-25 00:52 | Inpatient (IN) ==
[2020-04-25 01:22] LABS: Bilirubin,Urine Negative (Negative); Blood,Urine Moderate (Negative); Clarity,Urine Clear (Clear); Color,Urine Yellow (Yellow); Glucose,Urine (UA) Normal (Normal); Ketones,Urine Negative (Negative); Leukocyte Esterase,Urine Negative (Negative); Nitrite,Urine Negative (Negative); Protein,Urine Negative (Neg-Trace); Specific Gravity,Urine >= 1.030 (1.010-1.025); Urobilinogen,Urine Normal (Normal)
[2020-04-25 01:24] LABS: Basophils # 0.1 K/mcL (0.0-0.2); Basophils % 0.5 %; Eosinophils # 0.1 K/mcL (0.0-0.6); Eosinophils % 0.6 %; Hematocrit 45.4 % (35.3-44.9); Hemoglobin 14.8 g/dL (11.5-15.4); Immature Granulocytes % 0.6 % (0-4); Lymphocytes % 23.5 %; Mean Corpuscular HGB Conc 32.6 g/dL (31.6-35.5); Mean Corpuscular Hemoglobin 31.2 pg (28.0-33.3); Mean Corpuscular Volume 95.6 fL (83.0-100.0); Mean Platelet Volume 10.3 fL (9.4-12.4); Monocytes # 1.2 K/mcL (0.0-1.3); Monocytes % 6.8 %; Neutrophils # 11.7 K/mcL (1.6-8.9); Platelet Count 372 K/mcL (140-400); Red Blood Count 4.75 M/mcL (3.82-4.97); Red Cell Distribution Width 12.7 % (11.5-14.5); White Blood Count 17.2 K/mcL (4.3-11.1)
[2020-04-25 01:31] LABS: Bacteria,Urine Few per hpf (None-Few); Mucus,Urine Few per lpf (None-Few); RBC,Urine 0-3 per hpf (0-3); Squamous Epithelial Cell,Urine Few per hpf (None-Few); WBC,Urine 0-3 per hpf (0-3)
[2020-04-25 01:33] LABS: Amphetamine Screen,Urine Negative ng/mL (Cutoff=1000); Barbiturate Screen,Urine Negative ng/mL (Cutoff=200); Benzodiazepines Screen,Urine Negative ng/mL (Cutoff=200); Cannabinoid Screen,Urine Positive ng/mL (Cutoff = 50); Cocaine Screen,Urine Negative ng/mL (Cutoff= 300); Opiate Screen,Urine Negative ng/mL (Cutoff=300); Phencyclidine Screen,Urine Negative ng/mL (Cutoff=25)
[2020-04-25 01:44] LABS: Acetaminophen < 10 mcg/mL (10-20); BUN/Creatinine Ratio 34 (6-26); Blood Urea Nitrogen 25 mg/dL (6-20); Calcium 9.7 mg/dL (8.6-10.3); Carbon Dioxide 20 mEq/L (23-29); Chloride 106 mEq/L (98-107); Ethanol < 10 mg/dL (Less than 10); Glucose 123 mg/dL (70-105); Osmolality,Calculated 288 (280-300); Potassium 3.7 mEq/L (3.5-5.1); Salicylate < 2.5 mg/dL (15.0-30.0); Sodium 136 mEq/L (136-145); eGFR For African Americans > 60 (> 60); eGFR For Non-African Americans > 60 (> 60)
[2020-04-25 01:51] LABS: Platelet Estimate Normal (Normal); Reactive Lymphocytes Present (Not Present)
[2020-04-25] MEDS ORDERED: *HR* LORazepam 2 MG/ML VIAL IM PRN (03:53)
[2020-04-25] MEDS ORDERED: traZODone 50 MG TABLET PO PRN (03:53)
[2020-04-25] MEDS ORDERED: Acetaminophen 325 MG TABLET PO PRN (03:53)
[2020-04-25] MEDS ORDERED: haloperidoL 5 MG TABLET PO PRN (03:53)
[2020-04-25] MEDS ORDERED: hydrOXYzine pamoate 25 MG CAPSULE PO PRN (03:53)
[2020-04-25] MEDS ORDERED: Mag Hydrox/Al Hydrox/Simeth 30 ML UDC PO PRN (03:53)
[2020-04-25] MEDS ORDERED: Haloperidol Lactate 5 MG/ML VIAL IM PRN (03:53)
[2020-04-25] MEDS ORDERED: MOM Conc 10 ML UD.LIQ PO PRN (03:53)
[2020-04-25] MEDS ORDERED: *HR* LORazepam 1 MG TABLET PO PRN (03:53)
[2020-04-25] MEDS: Nicotine 2 MG GUM BC PRN (15:03)
[2020-04-26] MEDS: Nicotine 2 MG GUM BC PRN ×2 (09:48→18:40)
[2020-04-27] MEDS: Nicotine 2 MG GUM BC PRN (08:27)
[2020-04-27 09:57] VITALS: BP 121/88
== END 2020-04-27 14:40 | disposition home or self-care (01) | DRG 751 ==
LOC: EMEROOARM 00:52 → SUATTDRO 03:40 → 1ANU 03:40
PROVIDERS: ADMIT Psychiatry & Neurology Psychiatry; ATTEND Psychiatry & Neurology Psychiatry